=== PATIENT | male | born 1955 | race Hispanic/Latino ===

== ENCOUNTER 2017-11-21 15:50 | Outpatient (CLI) | payer BC, OTHER | END 2017-11-21 15:51 | disposition home or self-care (01) | LOC: BICMRI 15:50 | PROVIDERS: ATTEND Psychiatry & Neurology Neurology | DX: M51.26 Other intervertebral disc displacement, lumbar region (principal); M47.896 Other spondylosis, lumbar region; M47.897 Other spondylosis, lumbosacral region | CPT/HCPCS: 72148 ==

== ENCOUNTER 2019-01-04 18:23 | Emergency (ER) | payer BC, OTHER ==
[2019-01-04] MEDS ORDERED: Proparacaine 0.5% Opth 15 ML BOT ONE (19:15)
[2019-01-04] MEDS ORDERED: Fluorescein Opthalmic Strip ONE (19:15)
== END 2019-01-04 20:38 | disposition home or self-care (01) ==
LOC: ERS 18:23
DX: H10.9 Unspecified conjunctivitis (principal); E11.9 Type 2 diabetes mellitus without complications; I10 Essential (primary) hypertension; E78.5 Hyperlipidemia, unspecified
CPT/HCPCS: 99283

== ENCOUNTER 2020-08-19 10:53 | Emergency (ER) | payer OTHER ==
[2020-08-19 11:48] LABS: #Lymphocytes 1.2 thou/uL (1.20-3.40); #Monocytes 0.7 thou/uL (0.11-0.59); #Neutrophils 4.1 thou/uL (1.40-6.50); %Basophils 0.6 % (0.0-1.0); %Eosinophils 0.3 % (0.0-10.0); %Lymphocytes 20.3 % (21.0-51.0); %Monocytes 11.1 % (0.0-10.0); %Neutrophils 67.6 % (42.0-75.0); Hemoglobin 14.6 g/dL (14.0-18.0); Mean Corpuscular HGB CONC 32.7 g/dL (32.0-36.0); Mean Corpuscular Hemoglobin 30.7 pg (27.0-31.0); Mean Corpuscular Volume 93.9 fL (78.0-98.0); Mean Platelet Volume 7.3 fL (7.4-10.4); Platelet Count 220 thou/uL (130-400); RBC Distribution Width 11.4 % (11.5-14.5); Red Blood Cell (RBC) Count 4.75 mill/uL (4.70-6.10)
[2020-08-19 12:15] LABS: ALT (SGPT) 23 U/L (8-55); AST (SGOT) 26 U/L (5-34); Albumin 3.7 g/dL (3.4-4.8); Alkaline Phosphatase 60 U/L (40-110); Anion Gap 14 mmol/L (10-20); BUN (Urea Nitrogen) 16 mg/dL (8.4-25.7); Bilirubin, Total 1.2 mg/dL (0.2-1.2); Calc. Creatinine Clearance 0 mL/min (70-130); Calcium 8.7 mg/dL (7.8-10.44); Carbon Dioxide 26 mmol/L (23-31); Chloride 104 mmol/L (98-107); Globulin 3.3 g/dL (2.4-3.5); Glucose 122 mg/dL (80-115); Potassium 4.9 mmol/L (3.5-5.1); Sodium 139 mmol/L (136-145)
--- NOTE | 2020-08-19 13:25 | RAD ---
PORTABLE CHEST: Date; 08/19/2020 HISTORY: COVID-positive with shortness of breath. FINDINGS: Heart size and mediastinum are within normal limits. Lungs are clear of any infiltrative process. No definite infiltrative process. Postoperative changes of the right shoulder are present. IMPRESSION: No active intrathoracic disease. POS: DAVID
--- NOTE | 2020-08-22 20:39 | EKG ---
Test Reason : Blood Pressure : / mmHG Vent. Rate : 068 BPM Atrial Rate : 068 BPM P-R Int : 136 ms QRS Dur : 086 ms QT Int : 398 ms P-R-T Axes : 021 017 032 degrees QTc Int : 423 ms Normal sinus rhythm Normal ECG Confirmed by RADHA MEMBRENO, IRENE ([id number]), newspaper managing editor OLY MORGAN ([id number] on 08/22/2020 8:38:45 PM Referred By: Confirmed By:IRENE GARCIA MD
== END 2020-08-19 13:54 | disposition home or self-care (01) ==
LOC: ERS 10:53
DX: U07.1 COVID-19 (principal); J12.82 Pneumonia due to coronavirus disease 2019; E11.9 Type 2 diabetes mellitus without complications; E78.5 Hyperlipidemia, unspecified; I10 Essential (primary) hypertension; Z79.82 Long term (current) use of aspirin; Z79.84 Long term (current) use of oral hypoglycemic drugs; Z79.899 Other long term (current) drug therapy
CPT/HCPCS: 71045; 80053; 84484; 85025; 93005

== ENCOUNTER 2021-04-14 12:13 | Outpatient (CLI) | payer OTHER | END 2021-04-14 12:14 | disposition home or self-care (01) | LOC: BICRAD 12:13 | PROVIDERS: ATTEND Family Medicine | DX: I10 Essential (primary) hypertension (principal); K92.0 Hematemesis | CPT/HCPCS: 71046; 74018 ==

== ENCOUNTER 2021-04-24 09:27 | Inpatient (IN) | payer OTHER ==
[2021-04-24] MEDS ORDERED: Ondansetron PF 4 MG/2 ML Vial ONE ×2 (09:28→13:55)
[2021-04-24] MEDS ORDERED: ceFAZolin 2 GM/DEX 5% 100 ML BAG ONE ×3 (09:36→13:30)
[2021-04-24] MEDS ORDERED: Boostrix 0.5 ML (Tdap) VIAL ONE (09:36)
[2021-04-24] MEDS ORDERED: Fentanyl 100 MCG/2 ML VIAL ONE ×4 (09:36→15:19)
[2021-04-24] MEDS ORDERED: CEFAZOLIN 1 GM VIAL ONE (09:38)
[2021-04-24 09:45] LABS: #Basophils 0.1 thou/uL (0.0-0.2); #Eosinphils 0.1 thou/uL (0.0-0.7); #Monocytes 1.1 thou/uL (0.11-0.59); #Neutrophils 6.6 thou/uL (1.40-6.50); %Basophils 0.8 % (0.0-1.0); %Eosinophils 0.7 % (0.0-10.0); %Lymphocytes 38.8 % (21.0-51.0); %Monocytes 8.5 % (0.0-10.0); %Neutrophils 51.2 % (42.0-75.0); Hemoglobin 14.8 g/dL (14.0-18.0); Mean Corpuscular HGB CONC 34.9 g/dL (32.0-36.0); Mean Corpuscular Hemoglobin 33.3 pg (27.0-31.0); Mean Corpuscular Volume 95.5 fL (78.0-98.0); Platelet Count 279 thou/uL (130-400); RBC Distribution Width 11.3 % (11.5-14.5); Red Blood Cell (RBC) Count 4.44 mill/uL (4.70-6.10); White Blood Cell (WBC) Count 12.8 thou/uL (4.8-10.8)
[2021-04-24 09:56] LABS: INR-International Normal Ratio 0.9; Prothrombin Time 12.7 sec (12.0-14.7)
[2021-04-24 09:57] LABS: PTT 24.6 sec (22.9-36.1)
[2021-04-24] MEDS ORDERED: Ketamine 50 MG/ML (10ML VIAL) ONE (10:07)
[2021-04-24 10:09] LABS: ALT (SGPT) 12 U/L (8-55); AST (SGOT) 13 U/L (5-34); Albumin 4.1 g/dL (3.4-4.8); Alkaline Phosphatase 68 U/L (40-110); Anion Gap 14 mmol/L (10-20); BUN (Urea Nitrogen) 19 mg/dL (8.4-25.7); Bilirubin, Total 1.1 mg/dL (0.2-1.2); Calc. Creatinine Clearance 0 mL/min (70-130); Calcium 9.3 mg/dL (7.8-10.44); Carbon Dioxide 19 mmol/L (23-31); Chloride 106 mmol/L (98-107); Globulin 2.8 g/dL (2.4-3.5); Glucose 195 mg/dL (80-115); Protein, Total 6.9 g/dL (5.8-8.1); Sodium 135 mmol/L (136-145)
[2021-04-24] MEDS ORDERED: Iopamidol-370 76% 500 ML 1 ML ONE (12:18)
[2021-04-24] MEDS ORDERED: Lidocaine 2% PF 5 ML VIAL ONE (12:41)
[2021-04-24] MEDS ORDERED: Lidocaine 1% PF 5 ML VIAL ONE ×2 (12:41→13:55)
[2021-04-24] MEDS ORDERED: ceFAZolin Sodium/D5W 2 GM in Premix Bag 1 BAG IVPB SCH ×2 (13:00→22:00)
[2021-04-24 13:48] LABS: SARS-CoV-2 NAA Rapid Test Not Detected (NotDetected)
[2021-04-24] MEDS ORDERED: Glycopyrrolate 0.2 MG/ML 5 ML SYRINGE ONE (13:55)
[2021-04-24] MEDS ORDERED: PROPOFOL 200 MG/20 ML VIAL ONE (13:55)
[2021-04-24] MEDS ORDERED: Dexamethasone 20 MG/5 ML VIAL ONE (13:55)
[2021-04-24] MEDS ORDERED: Rocuronium Bromide 10 MG/ML (10ML VIAL) ONE (13:55)
[2021-04-24] MEDS ORDERED: Ketorolac Tromethamine 30 MG/ML VIAL ONE (13:55)
[2021-04-24] MEDS ORDERED: PHENYLEPHRINE-NS 100 MCG/ML 10 ML SYRINGE ONE (13:55)
[2021-04-24] MEDS ORDERED: Promethazine HCl 25 MG/ML VIAL IM PRN (15:07)
[2021-04-24] MEDS ORDERED: HYDROmorphone 2 MG/ML VIAL SLOW IVP PRN (15:07)
[2021-04-24] MEDS ORDERED: PACU-Morphine 4MG/ML VIAL SLOW IVP PRN (15:07)
[2021-04-24] MEDS ORDERED: Promethazine HCl 25 MG/ML VIAL IVPB PRN (15:07)
[2021-04-24] MEDS ORDERED: Ondansetron HCl/PF 4 MG/2 ML Vial IVP PRN (15:07)
[2021-04-24] MEDS ORDERED: Ondansetron PF 4 MG/2 ML Vial IVP PRN (15:55)
[2021-04-24] MEDS ORDERED: Dextrose 5% in Water 1,000 ML IV PRN (15:55)
[2021-04-24] MEDS ORDERED: Ondansetron ODT 4 MG TAB PO PRN (15:55)
[2021-04-24] MEDS ORDERED: Dextrose 50% Abboject 50 ML SYRINGE SLOW IVP PRN (15:55)
[2021-04-24] MEDS ORDERED: HumaLOG 300 UNITS/3 ML VIAL SC PRN ×2 (15:55)
[2021-04-24] MEDS ORDERED: Cyclobenzaprine 10 MG TAB PO PRN (15:55)
[2021-04-24] MEDS ORDERED: traMADol HCl 50 MG TAB PO PRN (15:55)
[2021-04-24] MEDS ORDERED: hydrALAZINE 20 MG/ML VIAL SLOW IVP PRN (15:55)
[2021-04-24 18:10] VITALS: BMI 25.8
[2021-04-24] MEDS ORDERED: Morphine 4 MG/ML VIAL SLOW IVP PRN (18:28)
[2021-04-24] MEDS: Acetaminophen 500 MG TAB PO SCH (18:30)
[2021-04-24] MEDS ORDERED: FLU VACC QS2021-22(6MOS UP)/PF 60 MCG/0.5 ML SYRINGE IM ONE (18:45)
[2021-04-24] MEDS: Famotidine 20 MG TAB PO SCH (22:15)
[2021-04-24] MEDS: Ibuprofen 800 MG TAB PO SCH (22:15)
[2021-04-24] MEDS: Sodium Chloride 0.9% 1,000 ML IV SCH (22:17)
[2021-04-24] MEDS: ceFAZolin 1 GM/D5W 1 GM in Premix Bag 1 BAG IVPB SCH (22:24)
[2021-04-25] MEDS: Acetaminophen 500 MG TAB PO SCH ×4 (01:40→18:48)
[2021-04-25] MEDS: ceFAZolin 1 GM/D5W 1 GM in Premix Bag 1 BAG IVPB SCH ×3 (06:43→22:00)
[2021-04-25] MEDS: Sodium Chloride 0.9% 1,000 ML IV SCH (06:43)
[2021-04-25] MEDS: traMADol HCl 50 MG TAB PO PRN ×2 (06:44→20:49)
[2021-04-25 06:52] LABS: #Lymphocytes 2.5 thou/uL (1.20-3.40); #Monocytes 1.6 thou/uL (0.11-0.59); #Neutrophils 9.9 thou/uL (1.40-6.50); %Basophils 0.1 % (0.0-1.0); %Eosinophils 0.2 % (0.0-10.0); %Lymphocytes 17.9 % (21.0-51.0); %Monocytes 11.3 % (0.0-10.0); %Neutrophils 70.5 % (42.0-75.0); Hemoglobin 15.2 g/dL (14.0-18.0); Mean Corpuscular HGB CONC 34.4 g/dL (32.0-36.0); Mean Corpuscular Hemoglobin 33.4 pg (27.0-31.0); Mean Corpuscular Volume 96.9 fL (78.0-98.0); Mean Platelet Volume 7.6 fL (7.4-10.4); Platelet Count 243 thou/uL (130-400); RBC Distribution Width 11.5 % (11.5-14.5); Red Blood Cell (RBC) Count 4.56 mill/uL (4.70-6.10)
[2021-04-25 07:12] LABS: Phosphorus 3.1 mg/dL (2.3-4.7)
[2021-04-25 07:15] LABS: Anion Gap 15 mmol/L (10-20); BUN (Urea Nitrogen) 16 mg/dL (8.4-25.7); Calc. Creatinine Clearance 100 mL/min (70-130); Calcium 8.9 mg/dL (7.8-10.44); Carbon Dioxide 21 mmol/L (23-31); Chloride 107 mmol/L (98-107); Glucose 121 mg/dL (80-115); Magnesium 2.1 mg/dL (1.6-2.6); Potassium 4.7 mmol/L (3.5-5.1); Sodium 138 mmol/L (136-145)
[2021-04-25] MEDS: Famotidine 20 MG TAB PO SCH ×2 (08:40→20:48)
[2021-04-25] MEDS: Ibuprofen 800 MG TAB PO SCH (08:40)
[2021-04-25] MEDS ORDERED: Ondansetron ODT 8 MG TAB PO PRN (10:28)
[2021-04-25] MEDS ORDERED: Calcium Carbonate 500 MG ChewTAB PO PRN (10:29)
[2021-04-25] MEDS: metFORMIN 500 MG TAB PO SCH (20:47)
[2021-04-25] MEDS: Lisinopril 20 MG TAB PO SCH (20:48)
[2021-04-25] MEDS: Atorvastatin Calcium 10 MG TAB PO SCH (20:48)
[2021-04-25] MEDS: Senokot S 8.6-50 MG TAB PO SCH (20:48)
[2021-04-25] MEDS: Empagliflozin 25 MG TAB PO SCH (20:58)
[2021-04-25] MEDS ORDERED: Pravastatin Sodium 20 MG TAB PO SCH (21:00)
[2021-04-25] MEDS ORDERED: Non-Formulary Item 1 EACH (Metformin Hcl [Metformin Hcl Er] 750 MG Tab.Er.24h) PO SCH (21:00)
[2021-04-25] MEDS ORDERED: Non-Formulary Item 1 EACH (Dapagliflozin Propanediol [Farxiga] 10 MG Tablet) PO SCH (21:00)
[2021-04-25] MEDS: Latanoprost 0.005% Ophth Soln 2.5 ml Bottle EA EYE SCH (22:01)
[2021-04-26] MEDS: Acetaminophen 500 MG TAB PO SCH ×5 (00:25→23:26)
[2021-04-26] MEDS: ceFAZolin 1 GM/D5W 1 GM in Premix Bag 1 BAG IVPB SCH ×3 (06:16→23:27)
[2021-04-26] MEDS: Polyethylene Glycol 3350 17 GM Packet PO SCH (07:58)
[2021-04-26] MEDS: Famotidine 20 MG TAB PO SCH ×2 (07:58→20:35)
[2021-04-26] MEDS: Senokot S 8.6-50 MG TAB PO SCH ×2 (07:58→20:35)
[2021-04-26] MEDS: traMADol HCl 50 MG TAB PO PRN (15:20)
[2021-04-26] MEDS: Empagliflozin 25 MG TAB PO SCH (19:47)
[2021-04-26] MEDS: Latanoprost 0.005% Ophth Soln 2.5 ml Bottle EA EYE SCH (20:35)
[2021-04-26] MEDS: Atorvastatin Calcium 10 MG TAB PO SCH (20:35)
[2021-04-26] MEDS: metFORMIN 500 MG TAB PO SCH (20:35)
[2021-04-26] MEDS: Lisinopril 20 MG TAB PO SCH (20:35)
[2021-04-27] MEDS: Acetaminophen 500 MG TAB PO SCH ×4 (06:05→23:05)
[2021-04-27] MEDS: ceFAZolin 1 GM/D5W 1 GM in Premix Bag 1 BAG IVPB SCH ×2 (06:05→14:37)
[2021-04-27] MEDS: Famotidine 20 MG TAB PO SCH (08:52)
[2021-04-27] MEDS: Senokot S 8.6-50 MG TAB PO SCH ×2 (08:52→19:49)
[2021-04-27] MEDS: Polyethylene Glycol 3350 17 GM Packet PO SCH (08:52)
[2021-04-27] MEDS: traMADol HCl 50 MG TAB PO SCH ×3 (12:00→23:06)
[2021-04-27] MEDS: Lisinopril 20 MG TAB PO SCH (19:49)
[2021-04-27] MEDS: Atorvastatin Calcium 10 MG TAB PO SCH (19:50)
[2021-04-27] MEDS: Empagliflozin 25 MG TAB PO SCH (19:50)
[2021-04-27] MEDS: Latanoprost 0.005% Ophth Soln 2.5 ml Bottle EA EYE SCH (19:50)
[2021-04-27] MEDS: metFORMIN 500 MG TAB PO SCH (19:50)
[2021-04-28] MEDS: traMADol HCl 50 MG TAB PO SCH ×3 (05:52→17:01)
[2021-04-28] MEDS: Acetaminophen 500 MG TAB PO SCH ×4 (05:52→20:31)
[2021-04-28 06:17] LABS: #Eosinphils 0.2 thou/uL (0.0-0.7); #Lymphocytes 2.4 thou/uL (1.20-3.40); #Monocytes 0.9 thou/uL (0.11-0.59); #Neutrophils 11.7 thou/uL (1.40-6.50); %Basophils 0.2 % (0.0-1.0); %Eosinophils 1.1 % (0.0-10.0); %Lymphocytes 15.9 % (21.0-51.0); %Monocytes 6.2 % (0.0-10.0); %Neutrophils 76.6 % (42.0-75.0); Mean Corpuscular HGB CONC 32.9 g/dL (32.0-36.0); Mean Corpuscular Hemoglobin 31.7 pg (27.0-31.0); Mean Corpuscular Volume 96.5 fL (78.0-98.0); Mean Platelet Volume 7.3 fL (7.4-10.4); Platelet Count 267 thou/uL (130-400); RBC Distribution Width 11.4 % (11.5-14.5); Red Blood Cell (RBC) Count 4.41 mill/uL (4.70-6.10); White Blood Cell (WBC) Count 15.3 thou/uL (4.8-10.8)
[2021-04-28] MEDS ORDERED: Promethazine 25 MG TAB PO PRN (07:57)
[2021-04-28] MEDS ORDERED: Promethazine HCl 12.5 MG in Sodium Chloride 0.9% 50 ML IVPB PRN (07:57)
[2021-04-28] MEDS ORDERED: Magnesium Citrate 300 ML BOT PO SCH (09:00)
[2021-04-28] MEDS: Saccharomyces boulardii 250 MG CAP PO SCH (09:07)
[2021-04-28] MEDS: Senokot S 8.6-50 MG TAB PO SCH ×2 (09:14→21:50)
[2021-04-28] MEDS: Polyethylene Glycol 3350 17 GM Packet PO SCH (09:14)
[2021-04-28] MEDS ORDERED: Fentanyl 100 MCG/2 ML VIAL ONE ×3 (17:47→19:38)
[2021-04-28] MEDS ORDERED: Rocuronium Bromide 10 MG/ML (10ML VIAL) ONE (18:23)
[2021-04-28] MEDS ORDERED: Ondansetron PF 4 MG/2 ML Vial ONE (18:23)
[2021-04-28] MEDS ORDERED: Dexamethasone 20 MG/5 ML VIAL ONE (18:23)
[2021-04-28] MEDS ORDERED: Lidocaine 1% PF 5 ML VIAL ONE (18:23)
[2021-04-28] MEDS ORDERED: PROPOFOL 200 MG/20 ML VIAL ONE (18:23)
[2021-04-28] MEDS ORDERED: Sodium Chloride 0.9% 10 ML ONE (19:27)
[2021-04-28] MEDS ORDERED: Meperidine HCl/PF 25 MG/ML VIAL ONE (19:29)
[2021-04-28] MEDS ORDERED: Promethazine HCl 25 MG/ML VIAL IVPB PRN (19:31)
[2021-04-28] MEDS ORDERED: Promethazine HCl 25 MG/ML VIAL IM PRN (19:31)
[2021-04-28] MEDS ORDERED: Ondansetron HCl/PF 4 MG/2 ML Vial IVP PRN (19:31)
[2021-04-28] MEDS ORDERED: hydrALAZINE 20 MG/ML VIAL ONE (19:36)
[2021-04-28 19:43] LABS: Hemoglobin 14.8 g/dL (14.0-18.0); Mean Corpuscular HGB CONC 33.8 g/dL (32.0-36.0); Mean Corpuscular Hemoglobin 32.6 pg (27.0-31.0); Mean Corpuscular Volume 96.5 fL (78.0-98.0); Mean Platelet Volume 7.5 fL (7.4-10.4); Platelet Count 225 thou/uL (130-400); RBC Distribution Width 11.6 % (11.5-14.5); Red Blood Cell (RBC) Count 4.53 mill/uL (4.70-6.10); White Blood Cell (WBC) Count 12.9 thou/uL (4.8-10.8)
[2021-04-28 20:00] LABS: Band 8 % (5-11); Eosinophils 1 % (0-10); Lymphocytes 16 % (21-51); MDiff Complete? YES; Monocytes 12 % (0-10); Neutrophil 57 % (42-75); Platelet Morphology Comment Appears Adequate; RBC Morphology Normal; Reactive Lymphocytes 6 % (0-10)
[2021-04-28] MEDS: traMADol HCl 50 MG TAB PO PRN (20:32)
[2021-04-28] MEDS: Empagliflozin 25 MG TAB PO SCH (21:47)
[2021-04-28] MEDS: metFORMIN 500 MG TAB PO SCH (21:47)
[2021-04-28] MEDS: Latanoprost 0.005% Ophth Soln 2.5 ml Bottle EA EYE SCH (21:47)
[2021-04-28] MEDS: Lisinopril 20 MG TAB PO SCH (21:49)
[2021-04-28] MEDS: Atorvastatin Calcium 10 MG TAB PO SCH (21:50)
[2021-04-29] MEDS: traMADol HCl 50 MG TAB PO SCH ×4 (00:09→15:48)
[2021-04-29] MEDS: Acetaminophen 500 MG TAB PO SCH ×3 (05:17→17:38)
[2021-04-29 06:06] LABS: #Lymphocytes 1.5 thou/uL (1.20-3.40); #Monocytes 0.7 thou/uL (0.11-0.59); #Neutrophils 7.4 thou/uL (1.40-6.50); %Eosinophils 0.2 % (0.0-10.0); %Lymphocytes 15.8 % (21.0-51.0); %Monocytes 7.5 % (0.0-10.0); %Neutrophils 76.5 % (42.0-75.0); Hemoglobin 13.7 g/dL (14.0-18.0); Mean Corpuscular HGB CONC 33.7 g/dL (32.0-36.0); Mean Corpuscular Hemoglobin 32.1 pg (27.0-31.0); Mean Corpuscular Volume 95.4 fL (78.0-98.0); Mean Platelet Volume 7.2 fL (7.4-10.4); Platelet Count 282 thou/uL (130-400); RBC Distribution Width 11.4 % (11.5-14.5); Red Blood Cell (RBC) Count 4.26 mill/uL (4.70-6.10); White Blood Cell (WBC) Count 9.6 thou/uL (4.8-10.8)
[2021-04-29] MEDS: ceFAZolin Sodium/D5W 2 GM in Premix Bag 1 BAG IVPB SCH ×2 (09:11→17:38)
[2021-04-29] MEDS: Polyethylene Glycol 3350 17 GM Packet PO SCH (09:17)
[2021-04-29] MEDS: Saccharomyces boulardii 250 MG CAP PO SCH (09:17)
[2021-04-29] MEDS: Senokot S 8.6-50 MG TAB PO SCH ×2 (09:18→21:53)
[2021-04-29] MEDS: traMADol HCl 50 MG TAB PO PRN (15:49)
[2021-04-29] MEDS ORDERED: Lidocaine 4% Topical Sol 50 ML BOT TOP PRN (18:02)
[2021-04-29] MEDS: Latanoprost 0.005% Ophth Soln 2.5 ml Bottle EA EYE SCH (21:52)
[2021-04-29] MEDS: metFORMIN 500 MG TAB PO SCH (21:53)
[2021-04-29] MEDS: Lisinopril 20 MG TAB PO SCH (21:53)
[2021-04-29] MEDS: Atorvastatin Calcium 10 MG TAB PO SCH (21:53)
[2021-04-30] MEDS: Acetaminophen 500 MG TAB PO SCH ×3 (00:01→12:00)
[2021-04-30] MEDS: ceFAZolin Sodium/D5W 2 GM in Premix Bag 1 BAG IVPB SCH ×2 (00:02→08:50)
[2021-04-30] MEDS: traMADol HCl 50 MG TAB PO SCH ×3 (05:45→11:59)
[2021-04-30] MEDS: Polyethylene Glycol 3350 17 GM Packet PO SCH (08:54)
[2021-04-30] MEDS: Senokot S 8.6-50 MG TAB PO SCH (08:54)
[2021-04-30] MEDS: Saccharomyces boulardii 250 MG CAP PO SCH (08:54)
[2021-04-30] MEDS ORDERED: Amoxicillin/Potassium Clav 875 MG TAB PO SCH ×2 (11:45→21:00)
[2021-04-30 12:14] VITALS: TEMP 97.9
[2021-04-30 16:33] VITALS: BP 116/78
== END 2021-04-30 17:19 | disposition home or self-care (01) | DRG 909 ==
LOC: ERS 09:27 → SDC 13:26 → SURG A 16:17 → OBSVTOIN 04-26 10:09
PROVIDERS: ADMIT Orthopaedic Surgery; ATTEND Surgery
PROC: 0KBB0ZZ Excision of Left Lower Arm and Wrist Muscle, Open Approach (ICD-10-PCS; principal; 2021-04-24)
PROC: 0XQP0ZZ Repair Left Index Finger, Open Approach (ICD-10-PCS; 2021-04-28)
PROC: 0KBB0ZZ Excision of Left Lower Arm and Wrist Muscle, Open Approach (ICD-10-PCS; 2021-04-28)
DX: S57.02XA Crushing injury of left elbow, initial encounter (principal); Z20.822 Contact with and (suspected) exposure to COVID-19; Z23 Encounter for immunization; S61.211A Laceration without foreign body of left index finger without damage to nail, initial encounter; S01.412A Laceration without foreign body of left cheek and temporomandibular area, initial encounter; K21.9 Gastro-esophageal reflux disease without esophagitis; E11.9 Type 2 diabetes mellitus without complications; I10 Essential (primary) hypertension; E78.00 Pure hypercholesterolemia, unspecified; Z79.899 Other long term (current) drug therapy; V67.5XXA Driver of heavy transport vehicle injured in collision with fixed or stationary object in traffic accident, initial encounter; Y92.410 Unspecified street and highway as the place of occurrence of the external cause; Y99.0 Civilian activity done for income or pay; Z79.84 Long term (current) use of oral hypoglycemic drugs
CPT/HCPCS: 36415; 36416; 70450; 70486; 71260; 72125; 74177; 80048; 80053; 82550; 83735; 84100; 85025; 85610; 85730; 86850; 86900; 86901; 87070; 87205; 90471; 90715; 96374; 96375; 96376; G0378; G0390; J0360; J0690; J1100; J1885; J2001; J2175; J2270; J2405; J2704; J3010; J7050; Q0162; Q0169; Q9967; U0002

== ENCOUNTER 2021-05-26 15:03 | Day surgery (SDC) | payer OTHER ==
[2021-05-25 09:57] VITALS: BMI 24.3
[2021-05-26] MEDS ORDERED: Heparin 5,000 UNITS/ML VIAL ONE (15:37)
[2021-05-26] MEDS ORDERED: Bupivacaine 0.25% HCL 30 ML VIAL ONE ×2 (16:37→16:46)
[2021-05-26] MEDS ORDERED: EPINEPHrine 1 MG/ML AMP ONE ×2 (16:37→18:27)
[2021-05-26] MEDS ORDERED: Midazolam HCl 2 mg/2 ml Vial ONE (16:38)
[2021-05-26] MEDS ORDERED: Bacitracin Zinc Ointment 30 gm TUBE ONE (16:40)
[2021-05-26] MEDS ORDERED: Famotidine/PF 20 mg/2ml Vial ONE (16:48)
[2021-05-26] MEDS ORDERED: Fentanyl 100 MCG/2 ML VIAL ONE (16:48)
[2021-05-26] MEDS ORDERED: Lidocaine 1% PF 5 ML VIAL ONE (17:56)
[2021-05-26] MEDS ORDERED: ePHEDrine 50 MG/ML VIAL ONE (17:56)
[2021-05-26] MEDS ORDERED: Dexamethasone 20 MG/5 ML VIAL ONE (17:56)
[2021-05-26] MEDS ORDERED: PROPOFOL 200 MG/20 ML VIAL ONE (17:56)
[2021-05-26] MEDS ORDERED: Ondansetron PF 4 MG/2 ML Vial ONE (17:56)
[2021-05-26] MEDS ORDERED: Promethazine HCl 25 MG/ML VIAL IM PRN (18:54)
[2021-05-26] MEDS ORDERED: Ondansetron HCl/PF 4 MG/2 ML Vial IVP PRN (18:54)
[2021-05-26] MEDS ORDERED: Promethazine HCl 25 MG/ML VIAL IVPB PRN (18:54)
[2021-05-26] MEDS ORDERED: HYDROcodone/Acetaminophen 5/325 mg Tablet ONE (19:24)
== END 2021-05-26 20:12 | disposition home or self-care (01) ==
LOC: SDC 15:03
PROVIDERS: ATTEND Plastic Surgery
PROC: 0HREX74 Replacement of Left Lower Arm Skin with Autologous Tissue Substitute, Partial Thickness, External Approach (ICD-10-PCS; principal; 2021-05-26)
DX: S51.802A Unspecified open wound of left forearm, initial encounter (principal); Z79.84 Long term (current) use of oral hypoglycemic drugs; Z79.899 Other long term (current) drug therapy; Z88.8 Allergy status to other drugs, medicaments and biological substances; X58.XXXA Exposure to other specified factors, initial encounter
CPT/HCPCS: J0171; J0690; J1100; J1644; J2250; J2405; J2704; J3010; J3490; S0020; S0028